=== PATIENT | female | born 1935 | race Caucasian/White ===

== ENCOUNTER 2020-11-23 10:45 | Observation (INO) | payer MEDICARE, BC ==
[~2020-11-23] VITALS: Ht 167.6 cm; Wt 72.6 kg
[~2020-11-23 10:45] MED LIST: MACROBID 100 M100 MG PO
[2020-11-23 14:03] LABS: HEMOGLOBIN 12.1 gm/dl (12.3-15.3); RED BLOOD COUNT 3.84 M/UL (4.00-5.10); WHITE BLOOD COUNT 5.4 K/UL (4.5-11.0)
[2020-11-23 14:40] LABS: BUN/CREATININE RATIO 17 (0-10)
[2020-11-23] MEDS ORDERED: ISOSORBIDE MONO30 MG PO (17:34)
[2020-11-23] MEDS ORDERED: METOPROLOL TART25 MG PO (17:35)
[2020-11-23] MEDS ORDERED: CITALOPRAM HBR20 MG PO (17:37)
[2020-11-23] MEDS ORDERED: PROAIR DIGIHAL90 MCG PO (17:37)
[2020-11-23] MEDS ORDERED: XANAX0.5 MG PO (17:38)
[2020-11-23] MEDS ORDERED: MIRTAZAPINE45 MG PO (17:39)
[2020-11-23] MEDS ORDERED: VITAMIN D3125 MCG PO (17:41)
[2020-11-23] MEDS ORDERED: ATORVASTATIN CA80 MG PO (17:43)
[2020-11-23] MEDS ORDERED: ASPIRIN81 MG PO (17:44)
[2020-11-23] MEDS ORDERED: TYLENOL PM EX-1 EACH PO (17:46)
[2020-11-23] MEDS ORDERED: GABAPENTIN100 MG PO (22:04)
[2020-11-23] MEDS ORDERED: VITAMIN D3 PO (22:06)
[2020-11-23] MEDS ORDERED: TYLENOL 8 HOUR650 MG PO (22:08)
[2020-11-23] MEDS ORDERED: ZINC50 M2 PO (22:09)
[2020-11-24 04:56] LABS: HEMOGLOBIN 11.7 gm/dl (12.3-15.3); RED BLOOD COUNT 3.71 M/UL (4.00-5.10); WHITE BLOOD COUNT 5.7 K/UL (4.5-11.0)
[2020-11-24] MEDS ORDERED: DONEPEZIL HCL5 MG PO (10:17)
== END 2020-11-24 12:07 | disposition home or self-care (01) ==
LOC: ER1 10:45 → CDU 16:04 → MED SURG 4 16:04
PROVIDERS: Emergency Medicine; Physician Assistant; ADMIT Internal Medicine
DX: F03.90 Unspecified dementia, unspecified severity, without behavioral disturbance, psychotic disturbance, mood disturbance, and anxiety (principal); G31.9 Degenerative disease of nervous system, unspecified; I10 Essential (primary) hypertension; Z20.822 Contact with and (suspected) exposure to COVID-19; E78.5 Hyperlipidemia, unspecified; Z95.0 Presence of cardiac pacemaker; F17.210 Nicotine dependence, cigarettes, uncomplicated; I63.9 Cerebral infarction, unspecified; N39.0 Urinary tract infection, site not specified
CPT/HCPCS: 36415; 70496; 70498; 71045; 80048; 80053; 82550; 82553; 82607; 82746; 83874; 84484; 85025; 93005; 99285; G0378; Q9967; U0002

== ENCOUNTER 2022-01-10 09:53 | Inpatient (IN) | payer MEDICARE, BC ==
[~2022-01-10] VITALS: Ht 165.1 cm; Wt 67.8 kg
[~2022-01-10 09:53] MED LIST changes: +ASPIRIN81 MG PO; +ATORVASTATIN CA80 MG PO; +CITALOPRAM HBR20 MG PO; +DONEPEZIL HCL5 MG PO; +GABAPENTIN100 MG PO; +ISOSORBIDE MONO30 MG PO; +METOPROLOL TART25 MG PO; +MIRTAZAPINE45 MG PO; +OMNICEF 300 MG300 MG PO; +PROAIR DIGIHAL90 MCG PO; +TYLENOL 8 HOUR650 MG PO; +TYLENOL PM EX-1 EACH PO; +VITAMIN D3 PO; +VITAMIN D3125 MCG PO; +XANAX0.5 MG PO; +ZINC50 M2 PO
[2022-01-10 15:15] LABS: HEMOGLOBIN 12.4 gm/dl (12.3-15.3); RED BLOOD COUNT 3.85 M/UL (4.00-5.10); WHITE BLOOD COUNT 14.4 K/UL (4.5-11.0)
[2022-01-10 18:49] LABS: BUN/CREATININE RATIO 41 (0-10)
[2022-01-10] MEDS ORDERED: QUETIAPINE FUM100 MG PO (19:17)
[2022-01-10] MEDS ORDERED: CARBIDOPA-LEVO1 EA14 PO (19:18)
[2022-01-10] MEDS ORDERED: SENNA8.6 MG PO (19:19)
[2022-01-10] MEDS ORDERED: ALPRAZOLAM1 MG PO (19:19)
[2022-01-10] MEDS ORDERED: MELATONIN3 MG PO (19:20)
[2022-01-11 06:38] LABS: RED BLOOD COUNT 3.67 M/UL (4.00-5.10); WHITE BLOOD COUNT 13.7 K/UL (4.5-11.0)
[2022-01-11] MEDS ORDERED: ROXANOL SOLN20 MG/M1 PO (09:25)
[2022-01-11] MEDS ORDERED: MACROBID 100 M100 MG PO (09:26)
[2022-01-11] MEDS ORDERED: ZOFRAN 4 MG TAB4 MG PO (09:27)
[2022-01-11] MEDS ORDERED: DEXAMETHASONE2 MG PO (19:20)
[2022-01-12 05:45] LABS: HEMOGLOBIN 11.8 gm/dl (12.3-15.3); RED BLOOD COUNT 3.64 M/UL (4.00-5.10)
[2022-01-12 05:48] LABS: WHITE BLOOD COUNT 8.9 K/UL (4.5-11.0)
[2022-01-13] MEDS ORDERED: POLYETHYLENE GL17 GM PO (11:24)
[2022-01-13] MEDS ORDERED: CHRONULAC20 GM/30 M PO (11:24)
[2022-01-13] MEDS ORDERED: STIMULANT LAXA1 EACH PO ×2 (11:24→14:34)
[2022-01-13] MEDS ORDERED: OMNICEF 300 MG300 MG PO (11:34)
--- NOTE | 2022-01-13 13:52 | NUR ---
FAMILY CAME TO NURSE WITH C/O MISSING RING. FAMILY STATED THEY HAD SEARCHED THE BED. UPON INVESTIGATION NURSE FOUND RING LYING NEXT TO PATIENT IN BED. TRANSPORT TECHNICIAN NOTIFIED. PATIENT'S GRANDDAUGHTER HAS THE RING WITH HER AT THIS TIME.
[2022-01-13] MEDS ORDERED: IBUPROFEN200 MG PO (14:34)
[2022-01-13] MEDS ORDERED: PROTONIX 40 MG40 M1 PO (14:34)
== END 2022-01-13 17:13 | DRG 558 ==
LOC: ER1 09:53 → MED SURG 4 16:13 → CDU 16:13 → MED SURG 4 16:13
PROVIDERS: Emergency Medicine; Physician Assistant; ADMIT Internal Medicine
DX: M70.62 Trochanteric bursitis, left hip (principal); N39.0 Urinary tract infection, site not specified; F02.80 Dementia in other diseases classified elsewhere, unspecified severity, without behavioral disturbance, psychotic disturbance, mood disturbance, and anxiety; G20 Parkinson's disease; F17.200 Nicotine dependence, unspecified, uncomplicated; D72.829 Elevated white blood cell count, unspecified; T38.0X5A Adverse effect of glucocorticoids and synthetic analogues, initial encounter; K59.00 Constipation, unspecified; Z66 Do not resuscitate; W01.0XXA Fall on same level from slipping, tripping and stumbling without subsequent striking against object, initial encounter; Z85.038 Personal history of other malignant neoplasm of large intestine; Z95.0 Presence of cardiac pacemaker; Z98.890 Other specified postprocedural states; Z87.440 Personal history of urinary (tract) infections; Z80.1 Family history of malignant neoplasm of trachea, bronchus and lung; Z51.5 Encounter for palliative care; Z79.899 Other long term (current) drug therapy
CPT/HCPCS: 36415; 72192; 73502; 74018; 80048; 80053; 80202; 81001; 85025; 85027; 85652; 86140; 87040; 87086; 96365; 96368; 99285; G0378; J1650; J2543; J3370; J7030; J7070